=== PATIENT | female | born 1975 | race Caucasian/White ===

== ENCOUNTER 2016-04-11 09:13 | Inpatient (IN) | payer OTHER ==
[2016-04-04 09:12] VITALS: BMI 29.0
--- NOTE | 2016-04-04 09:40 | PAT Medication Instructions ---
Service Date Apr 04, 2016. Current Home Medication List Acetaminophen (Tylenol), 1,000 MG PO PRN Ferrous Sulfate (Ferrous Sulfate), 325 MG PO QAM Hydrocodone/Acetaminophen ([place] 10/325 Tab), 1 TAB PO Q4-6H PRN for N Multivitamin (Multivitamin), 1 TAB PO QAM Pantoprazole (Protonix), 40 MG PO QAM Polyethylene Glycol 3350 (Miralax), 17 GM PO DAILY PRN for PRN Sertraline (Zoloft), 100 MG PO QAM Sucralfate (Carafate), 10 ML PO QID Medication Instructions For Your Scheduled Surgery - Hold the following medications the morning of surgery: Polyethylene Glycol 3350 (Miralax), 17 GM PO DAILY PRN for PRN Multivitamin (Multivitamin), 1 TAB PO QAM Ferrous Sulfate (Ferrous Sulfate), 325 MG PO QAM Sucralfate (Carafate), 10 ML PO QID - Take the following medications the morning of surgery with a sip of water: Sertraline (Zoloft), 100 MG PO QAM Pantoprazole (Protonix), 40 MG PO QAM Acetaminophen (Tylenol), 1,000 MG PO PRN Hydrocodone/Acetaminophen ([place] 10/325 Tab), 1 TAB PO Q4-6H PRN for N (okay to take up to 4 hours prior to surgery if needed) - Take the following medications as scheduled the night before surgery: Sucralfate (Carafate), 10 ML PO QID Polyethylene Glycol 3350 (Miralax), 17 GM PO DAILY PRN for PRN Acetaminophen (Tylenol), 1,000 MG PO PRN Hydrocodone/Acetaminophen ([place] 10/325 Tab), 1 TAB PO Q4-6H PRN for N If you have any questions please call us at [phone] (Nancy Lang PA-C) or [phone] or [phone]
--- NOTE | 2016-04-04 10:21 | DIAGNOSTIC IMAGING REPORT ---
CHEST PREADMISSION(PA/LAT) CLINICAL HISTORY: PAT preoperative evaluation COMPARISON STUDY: No previous studies for comparison. FINDINGS: The bones soft tissues and hemidiaphragms are normal. The cardiomediastinal silhouette is normal. The lungs are clear. The pulmonary vasculature is normal. IMPRESSION: Negative chest. Electronically signed by: Jasen Simpson M.D. 04/04/2016 10:20 AM Dictated Date/Time: 04/04/2016 10:19 AM
[2016-04-04 10:25] LABS: BASO % 0.2 %; BASO ABS # 0.02 K/uL (0-0.2); COMPLETE YES; EOS % 1.4 %; IG% 0.3 %; LYMPH % 27.4 %; LYMPH ABS # 2.36 K/uL (1.2-3.4); MEAN CELL VOLUME 85.1 fL (80-100); MEAN CORPUSCULAR HEMOGLOBIN 28.2 pg (25-34); MEAN CORPUSCULAR HGB CONC 33.2 g/dl (32-36); NEUT % 64.7 %; PLATELET COUNT 388 K/uL (130-400); RED BLOOD COUNT 4.82 M/uL (4.2-5.4)
[2016-04-04 10:32] LABS: URINE APPEARANCE CLEAR (CLEAR); URINE BILIRUBIN NEG (NEG); URINE COLOR YELLOW; URINE NITRITE NEG (NEG); URINE PH 6.5 (4.5-7.5); UROBILINOGEN NEG (NEG); ZZUR CULT IF INDIC CLEAN CATCH NO
[2016-04-04 10:44] LABS: BUN/CREATININE RATIO 7.3 (10-20); CALCIUM 9.1 mg/dl (8.5-10.1); CREATININE 0.56 mg/dl (0.60-1.20); POTASSIUM 3.7 mmol/L (3.5-5.1)
[2016-04-04 10:45] LABS: MANUAL MICROSCOPIC REQUIRED? NO; REVIEW REQ? NO
[2016-04-04 11:00] LABS: INR 1.1 (0.9-1.1); PARTIAL THROMBOPLASTIN RATIO 1.1; PROTHROMBIN TIME (PATIENT) 11.5 SECONDS (9.0-12.0)
[2016-04-04 11:24] LABS: ESTIMATED AVERAGE GLUCOSE 105 mg/dl; HA1C FLAG Normal (Normal)
--- NOTE | 2016-04-04 11:29 | History and Physical ---
History & Physical Date Apr 04, 2016. Chief Complaint Left Knee Pain History of Present Illness Ms Demarco is a 40 year old female who complains of left knee pain. She presents with pain on the left side. Patient reports that she injured her left knee in September,. States that her left knee pain has been getting progressively worse over the last 5-6 weeks. The symptoms occur intermittently. The problem is fluctuating. Currently the patient states that the symptoms are moderate- severe. The pain is described as aching, discomforting and throbbing. The symptoms occur intermittently. The symptoms are aggravated by ascending stairs, daily activities, descending stairs, first steps while awake, kneeling, repetitive activities, sleeping on the affected side, squatting, walking and standing. Pt. unable to stand for long periods of time. Lisa states that the symptoms are relieved by no specific activity. In addition to left knee pain the patient is also experiencing decreased mobility, difficulty bending, difficulty going to sleep, limping, nighttime awakening, pain and tenderness. Pertinent negatives include chills and fever. Prior pain medications include hydrocodone. Pt. takes chronic Hydorcodone 10/[address] She is unable to take NSAID's due to medical reasons. Patient has had arthroscopic surgery. Pt. had ACL reconstruction many years ago. There were previous episodes. Pt. had known back problems and had gastric bypass surgery. Past Medical/Surgical History Past Medical History 1. Low Back Pain 2. GERD Past Surgical History 1. Tonsils 2. Right foot Reconstruction 3. Tubal Ligation 4. Hysterectomy 5. Gastric Bypass 5. Cholecystectomy Additional History Hepatic Disease: No Endocrine Disorder: No Kidney Disease: No Hypertension: No Heart Disease: No Bleeding Tendencies: No Allergies Coded Allergies: Ciprofloxacin (Verified Allergy, Unknown, FACIAL SWELLING, 04/04/16) NSAIDs (Verified Allergy, Unknown, NOT TO TAKE DUE TO BLEEDING,HX ULCERS, 04/04/16) Home Medications Scheduled Acetaminophen (Tylenol), 1,000 MG PO PRN Ferrous Sulfate (Ferrous Sulfate), 325 MG PO QAM Multivitamin (Multivitamin), 1 TAB PO QAM Pantoprazole (Protonix), 40 MG PO QAM Sertraline (Zoloft), 100 MG PO QAM Sucralfate (Carafate), 10 ML PO QID Scheduled PRN Hydrocodone/Acetaminophen ([place] 10/325 Tab), 1 TAB PO Q4-6H PRN for N Polyethylene Glycol 3350 (Miralax), 17 GM PO DAILY PRN for PRN Physical Examination Skin: warm/dry, no rash Eyes: normal inspection, EOMI, sclerae normal ENT: normal ENT inspection, pharynx normal Head: normocephalic, atraumatic Neck: supple, no adenopathy, trachea midline Respiratory/Chest: lungs clear, normal breath sounds, no respiratory distress Cardiovascular: regular rate, rhythm, no edema, no murmur Abdomen / GI: normal bowel sounds, non tender Addiitonal Comments: Left Knee Exam Knee ROM L * Active ROM - Flexion: 120 degrees, Extension: 3 degrees, Factors: normal, Description: active pain free range of motion. Passive ROM - Flexion: 135 degrees, Extension: 0 degrees, Factors: normal, Description: passive pain free range of motion. Knee ROM R * Active ROM - Flexion: 135 degrees, Extension: 0 degrees, Factors: normal, Description: active pain free range of motion. Passive ROM - Flexion: 135 degrees, Extension: 0 degrees, Factors: normal, Description: passive pain free range of motion. Strength LE Normal Strength Description - Normal lower extremity: Bilateral. Knee * Gait: Antalgic. Alignment - Left: neutral. Ecchymosis - Left: negative. Effusion - Left: mild. Swelling - Left: mild. Flexibility - Left: normal. Maximum tenderness - Left: Medial Joint Line. Patella exam - Crepitation - Left : negative. Patella position - Left: neutral. Q-angle - Right: Abnormal, 5 degrees. Tilt - Left: equal. [facility]'s - medial - Left: Positive. Knee Normal Inspection - Atrophy - Left: Absent. Skin - Left: Normal. Patella exam - Apprehension - Right: Negative, Left: Negative. Q-angle - Left: Normal. Duane's - Left: Negative. Maria Elena's - lateral - Left: Negative. Posterior drawer - Left: Negative. Anterior drawer - Left: Negative. Valgus stress - Left : Negative. Varus stress - Left: Negative. Extensor lag - Left: Normal. Neurovascular LE Normal Neurovascular examination including reflexes, sensation , and pulses is within normal limits. LEFT KNEE XRAY Study Result/Report X-RAY Knee 4 Or More Views LT knee Severe end-stage tricompartmental degenerative joint disease left knee with retained ACL hardware [id number] changes medial lateral patellofemoral compartments Diagnosis LEFT KNEE OSTEOARTHRITIS Further care discussed with patient and at this point in time has failed conservative measures and would like to proceed with a left total knee replacement. Plan on discharge will be home with outpatient physical therapy. DVT prophalaxis with TEDs, SCDs and will also place on aspirin 81 mg p.o. b.i.d. for a month postop. Patient will have follow up appointment in our office two weeks post op for staple/suture removal and re-evaluation. Patient otherwise has no other questions or concerns. Plan of Treatment plan for a left total knee replacement and removal previous ACL screws
[~2016-04-11] VITALS: Ht 165.1 cm; Wt 79.1 kg
[2016-04-11] VITALS (10 sets, daily range): BP systolic 101–118; BP diastolic 66–75; PULSE 68–88; TEMP 36.5–36.8; O2SAT 95–99; Ht 165.1 cm; Wt 79.1 kg
[2016-04-11] MEDS: TRANEXAMIC ACID INJ 1,000 MG in SODIUM CHLORIDE 0.9% 100ML 100 ML IV SCH ×2 (06:30→11:10)
--- NOTE | 2016-04-11 07:09 | History & Physical Bridge Note ---
H&P Re-Evaluation Bridge Note: I have examined the patient, reviewed the History & Physical and in the interval since the performance of the History & Physical I have noted the following changes of clinical significance: No changes noted
[~2016-04-11 09:13] MED LIST: ACET-1256 PO; BUPIVACAINE 0.5 % 5 MG/1 ML PF 10ML VIAL ONE; CEFAZOLIN 1000MG/55 ML D5W IV SCH; CRFL PO; FERR325T5 PO; HYDR-4383 PO; LACTATED RINGER'S 1000ML 1,000 ML IV SCH; LACTATED RINGER'S 1000ML 500 ML IV ONE; MULT-506 PO; PANT40TA PO; POLY335019 PO; ROPIVACAINE 5MG/ML 30 ML 150 MG, BUPIVACAINE/EPINEPHR 0.5% MPF 30 ML, KETOROLAC TROMETH... INFIL SCH; SERT-234 PO
[2016-04-11] MEDS ORDERED: NURSING VERBAL MED ORDER STA (09:48)
[2016-04-11] MEDS ORDERED: FENTANYL CITRATE INJ 50 MCG/1 ML 2 ML VIAL ONE (10:14)
[2016-04-11] MEDS ORDERED: MIDAZOLAM HCL 1 MG/ML 2ML VIAL ONE ×2 (10:14→12:11)
[2016-04-11] MEDS ORDERED: ONDANSETRON INJ 2 MG/ML 2 ML VIAL IV PRN ×2 (10:45→14:15)
[2016-04-11] MEDS ORDERED: ATROPINE SULFATE 0.1 MG/ML 5ML SYR IV PRN (10:45)
[2016-04-11] MEDS ORDERED: EpHEDrine SULFATE INJ 50 MG/ML AMP IV PRN (10:45)
[2016-04-11] MEDS ORDERED: FENTANYL CITRATE INJ 50 MCG/1 ML 2 ML VIAL IV PRN (10:45)
[2016-04-11] MEDS ORDERED: POVIDONE-IODINE OP SOLN 30 ML BTL ONE (11:20)
[2016-04-11] MEDS ORDERED: ORTHO JOINT ANESTHETIC ONE (11:20)
[2016-04-11] MEDS ORDERED: BACITRACIN 50000 UNIT VIAL ONE (11:20)
[2016-04-11] MEDS ORDERED: PROPOFOL IV EMULSION 10 MG/ML 20 ML VIAL IV ONE (12:22)
[2016-04-11] MEDS ORDERED: LIDOCAINE HCL 2% 2 ML VIAL (20MG/ML) ONE (12:22)
--- NOTE | 2016-04-11 13:39 | [facility] Post Operative Brief Note ---
Immediate Operative Summary Operative Date Apr 11, 2016. Pre-Operative Diagnosis Left Knee Osteoarthritis with retained acl screws Post-Operative Diagnosis Same as preop Procedure(s) Performed Left Total Knee Arthroplasty, Removal of Anterior Cruciate Ligament Screws Surgeon Dr. Hammer Tank Truck Loader Surgeon(s) Jasen Pavon Estimated Blood Loss 5 ml Findings severe djd lt knee Specimens A. Left Knee Bone and Tissue B. Removed Hardware Complication(s) None Disposition Recovery Room / PACU
--- NOTE | 2016-04-11 14:05 | OPERATIVE REPORT ---
DATE OF OPERATION: 04/11/2016 PREOPERATIVE DIAGNOSIS: Severe end-stage tricompartmental degenerative joint disease, left knee with retained anterior cruciate ligament screws. POSTOPERATIVE DIAGNOSIS: Same. PROCEDURE: Removal of ACL screws and left total knee arthroplasty utilizing size 4 femur, 3 tibia, 9 poly, 32 oval patella Journey II nonblock total knee arthroplasty. SURGEON: Dr. Hammer. ACCOUNTS RECEIVABLE COLLECTOR: Jasen Pavon PA-C, who was necessary for prepping, draping, retraction, and wound closure of deep fascia, subQ and skin and was necessary for the case. HISTORY OF PRESENT ILLNESS: The patient presents as a very pleasant 40-year-old white female with the above complaints. She has had a longstanding progressive deterioration of her knee since her ACL reconstruction years prior. She presents with bone to bone changes medial compartment and lateral compartment and patellofemoral compartment. She has been nonresponsive to conservative therapy including physical therapy, anti-inflammatories, activity modification, bracing, viscosupplementations and presents for left total knee arthroplasty. OPERATION AND FINDINGS: PROCEDURE: The patient was properly prepped and draped in supine position for total knee arthroplasty after identifying the appropriate surgical site. An anterior midline incision was made through the subcutaneous tissues down to the region of the extensor mechanism. A medial parapatellar incision was subsequently made. Meticulous hemostasis was obtained and performed at all times. The patella having been subluxed lateralward, medial and lateral meniscal remnants were excised. The patellar cut was then initially made and was sized to the appropriate size. After subluxing the tibia forward the appropriate meniscal fragments having been removed the distal femur was then cut first utilizing a Dominguez \T\ Nephew block. The distal femoral cuts and chamfer cuts were all made under direct visualization and the proximal tibial osteotomy cut was also made utilizing Dominguez \T\ Nephew blocks and checked with an extramedullary guide. The appropriate trial components on the femur and tibia were placed. Appropriate trial spacers were used to check flexion and extension gaps. With flexion and extension gaps being equal, the components were then subsequently after thorough irrigation and debridement lavage components were then subsequently cemented in the following order: femur, tibia and patella. ACL femoral and tibial screws were both removed under direct visualization without difficulty. Exparel was used for intraoperative anesthesia, the medial parapatellar incision was closed utilizing #1 Vicryl, subQ was closed with 2-0 Vicryl, skin was closed with skin clips. A sterile compression dressing was placed. The patient was taken to recovery room in stable condition. Due to the complex nature of the procedure, the entire surgery was performed with the operational assistance of Jasen Pavon PA-C. The sales service assistant, under direct supervision, was involved in the actual performance of all aspects of the surgical procedure including hemostasis, tissue retraction and incision, instrument management, patient positioning, and wound closure. I attest to the content of the Intraoperative Record and any orders documented therein. Any exceptio ns are noted below.
[2016-04-11] MEDS ORDERED: ALUMINUM/MAGNESIUM/SIMETH (MAALOX MAX) 30 ML UDC PO PRN (14:15)
[2016-04-11] MEDS ORDERED: ZOLPIDEM TARTRATE 5 MG TAB PO PRN (14:15)
[2016-04-11] MEDS ORDERED: MAGNESIUM HYDROXIDE SUSP 30 ML UDC PO PRN (14:15)
[2016-04-11] MEDS ORDERED: MoRPHine SULFATE 2 MG/ML CARP IV PRN ×2 (14:15→15:30)
[2016-04-11] MEDS ORDERED: BISACODYL 10 MG SUPP PR PRN (14:15)
[2016-04-11] MEDS ORDERED: SOD PHOSPHATE/SOD BIPHOSPHATE ENEMA 132 ML BTL PR PRN (14:15)
--- NOTE | 2016-04-11 14:54 | Anesthesiology Progress Note ---
Anesthesia Post Op Note Date & Time Apr 11, 2016 at 14:54 Vital Signs Pain Intensity: 0 Vital Signs Past 12 Hours Date Time Temp Pulse Resp B/P Pulse Ox O2 Delivery O2 Flow Rate FiO2 04/11/16 14:45 107/57 04/11/16 14:42 79 13 04/11/16 14:42 78 13 99 04/11/16 14:40 105/60 04/11/16 14:37 76 19 04/11/16 14:37 75 19 99 04/11/16 14:35 106/67 04/11/16 14:32 71 13 04/11/16 14:32 73 13 100 04/11/16 14:30 105/59 04/11/16 14:27 79 12 04/11/16 14:27 79 12 100 04/11/16 14:25 99/54 04/11/16 14:22 83 12 04/11/16 14:22 82 12 98 04/11/16 14:21 82 13 99 04/11/16 14:21 80 13 04/11/16 14:20 105/59 04/11/16 14:16 79 17 04/11/16 14:16 79 17 98 04/11/16 14:15 97/57 04/11/16 14:11 84 13 04/11/16 14:11 37.1 88 19 103/51 97 Nasal Cannula 2 04/11/16 14:11 85 13 103/51 97 04/11/16 09:41 36.7 88 20 118/73 97 Room Air Notes Mental Status: alert / awake / arousable, participated in evaluation Pt Amnestic to Procedure: Yes Nausea / Vomiting: adequately controlled Pain: adequately controlled Airway Patency, RR, SpO2: stable & adequate BP & HR: stable & adequate Hydration State: stable & adequate Anesthetic Complications: no major complications apparent
--- NOTE | 2016-04-11 15:05 | DIAGNOSTIC IMAGING REPORT ---
TWO VIEWS LEFT KNEE CLINICAL HISTORY: Postoperative examination. FINDINGS: AP and crosstable lateral portable views of the left knee are obtained. A left knee arthroplasty is in near anatomic alignment. There has been undersurface remodeling of the patella. No acute fracture is seen. There are expected postoperative changes around the knee including a surgical drain, soft tissue edema, and subcutaneous gas. IMPRESSION: Expected postoperative changes status post left knee arthroplasty. No acute fracture is seen. Electronically signed by: Herminio Alexander M.D. 04/11/2016 3:04 PM Dictated Date/Time: 04/11/2016 3:03 PM
[2016-04-11] MEDS ORDERED: POLYETHYLENE (MIRALAX) 17 GM PACK PO PRN (15:30)
[2016-04-11] MEDS ORDERED: MoRPHine SULFATE 4 MG/ML 1 ML CARP\\VIAL IV PRN (15:45)
[2016-04-11] MEDS ORDERED: MoRPHine SULFATE 10 MG/ML CARP/VIAL IV PRN (15:45)
[2016-04-11] MEDS: ACETAMINOPHEN 500 MG TAB PO SCH ×2 (16:15→20:32)
[2016-04-11] MEDS: D5W AND 1/2NSS + 20MEQ KCL 1,000 ML IV SCH (16:15)
[2016-04-11] MEDS ORDERED: SUCRALFATE 1 GM/10 ML UDC PO SCH (17:00)
[2016-04-11] MEDS: OXYCODONE HCL IR 5 MG TAB (IMMEDIATE RELEASE) PO PRN (17:05)
[2016-04-11] MEDS: SUCRALFATE 1 GM/10 ML UDC PO SCH ×2 (17:06→20:31)
[2016-04-11] MEDS ORDERED: NURSING VERBAL MED ORDER ONE ×4 (17:45→20:45)
[2016-04-11] MEDS: CEFAZOLIN IV 1,000 MG in DEXTROSE 5% 50ML 50 ML IV SCH (18:03)
[2016-04-11] MEDS: FERROUS GLUCONATE 324 MG TAB PO SCH (18:04)
[2016-04-11] MEDS ORDERED: MoRPHine SULFATE 2 MG/ML CARP IV ONE (20:00)
[2016-04-11] MEDS ORDERED: SODIUM CHLORIDE 0.9% 1000ML 1,000 ML IV SCH (20:00)
[2016-04-11] MEDS ORDERED: NALOXONE HCL 0.4 MG/1 ML VIAL/CARP IV PRN (20:00)
[2016-04-11] MEDS: MORPHINE SULFATE 1 MG/ML 50 ML PCA SYR IV PRN (20:16)
[2016-04-11] MEDS: ASPIRIN 81 MG ECTAB PO SCH (20:31)
[2016-04-11] MEDS: DOCUSATE SODIUM 100 MG CAP PO SCH (20:31)
[2016-04-11] MEDS: SENNA 8.6 MG TAB PO SCH (20:31)
[2016-04-11] MEDS ORDERED: OXYCODONE HCL 10 MG TABCR (OXYCONTIN) PO SCH (21:00)
[2016-04-11] MEDS: LORAZEPAM 0.5 MG TAB PO PRN (23:27)
[2016-04-12 00:23] VITALS: BP 108/68; PULSE 76; TEMP 36.4; O2SAT 96
[2016-04-12] MEDS: MORPHINE SULFATE 1 MG/ML 50 ML PCA SYR IV PRN ×3 (00:53→06:54)
[2016-04-12] MEDS: D5W AND 1/2NSS + 20MEQ KCL 1,000 ML IV SCH ×2 (00:58→12:41)
[2016-04-12] MEDS: CEFAZOLIN IV 1,000 MG in DEXTROSE 5% 50ML 50 ML IV SCH (00:58)
[2016-04-12 02:59] VITALS: BP 97/65; PULSE 69; TEMP 36.4; O2SAT 97
[2016-04-12] MEDS: ACETAMINOPHEN 500 MG TAB PO SCH ×3 (05:09→21:43)
[2016-04-12 07:38] VITALS: BP 107/73; PULSE 78; TEMP 36.6; O2SAT 100
--- NOTE | 2016-04-12 07:42 | Orthopedic Progress Note ---
Orthopedic Progress Note Date of Service Apr 12, 2016. Subjective Post OP Day: 1 Reports: feeling well, using SALES CENTER MANAGER, Denies: SOB, chest pain, light headedness, nausea / vomiting Additional Notes: having increased pain last evening into today. denies CP/SOB Objective calves soft nontender, N/V intact, capillary refill less than 2 sec., dressing C /D/I, A&O x3, toes mobile Date Time Temp Pulse Resp B/P Pulse Ox O2 Delivery O2 Flow Rate FiO2 04/12/16 07:38 36.6 78 16 107/73 100 Room Air 04/12/16 02:59 36.4 69 16 97/65 97 Room Air 04/12/16 00:23 36.4 76 18 108/68 96 Room Air 04/11/16 23:28 36.6 72 16 109/72 96 Room Air 04/11/16 22:15 36.6 69 18 103/67 97 Nasal Cannula 2.0 04/11/16 21:11 36.5 68 18 110/69 96 Room Air 04/11/16 20:24 74 18 109/75 98 Nasal Cannula 2.0 04/11/16 19:45 Nasal Cannula 2.0 04/11/16 18:56 36.8 77 16 118/74 97 Room Air 04/11/16 17:26 36.6 69 16 109/71 95 Room Air 04/11/16 16:12 36.6 81 16 108/73 99 Room Air 04/11/16 15:53 87 16 106/71 99 Nasal Cannula 2.0 04/11/16 15:15 98 Nasal Cannula 2.0 04/11/16 15:15 98 Nasal Cannula 2.0 04/11/16 15:15 36.7 77 18 101/66 98 Nasal Cannula 2.0 04/11/16 14:56 74 12 99 04/11/16 14:56 74 12 04/11/16 14:55 105/59 04/11/16 14:51 75 18 04/11/16 14:51 77 18 97 04/11/16 14:50 107/56 04/11/16 14:46 76 15 04/11/16 14:46 81 15 99 04/11/16 14:45 37.3 107/57 04/11/16 14:42 79 13 04/11/16 14:42 78 13 99 04/11/16 14:40 105/60 04/11/16 14:37 76 19 04/11/16 14:37 75 19 99 04/11/16 14:35 106/67 04/11/16 14:32 71 13 04/11/16 14:32 73 13 100 04/11/16 14:30 105/59 04/11/16 14:27 79 12 04/11/16 14:27 79 12 100 04/11/16 14:25 99/54 04/11/16 14:22 83 12 04/11/16 14:22 82 12 98 04/11/16 14:21 82 13 99 04/11/16 14:21 80 13 04/11/16 14:20 105/59 04/11/16 14:16 79 17 04/11/16 14:16 79 17 98 04/11/16 14:15 97/57 04/11/16 14:11 84 13 04/11/16 14:11 37.1 88 19 103/51 97 Nasal Cannula 2 04/11/16 14:11 85 13 103/51 97 04/11/16 09:41 36.7 88 20 118/73 97 Room Air Laboratory Results 24 Hours: Test 04/12/16 04:44 Assessment & Plan Assessment: POD #1 s/p Left TKA -having increased pain, will increase oxycontin to 20mg bid, add dilaudid IV prn q 2 hours -PT/OT -dvt proph with ifeoma/scd/asa, has h/o gastric ulcers but is able to tolerate small doses of NSAIDs if taking protonix, will cont to observe. discussed possibly using lovenox as well Discharge Planning DVT Prophylaxis: TEDs, SCDs, ASA Therapy: Physical Therapy
[2016-04-12] MEDS: OXYCODONE HCL IR 5 MG TAB (IMMEDIATE RELEASE) PO PRN ×4 (08:13→22:32)
[2016-04-12] MEDS: KETOROLAC TROMETHAMINE 30 MG/ML VIAL IV PRN ×3 (08:13→20:24)
[2016-04-12] MEDS: SUCRALFATE 1 GM/10 ML UDC PO SCH ×4 (08:14→20:41)
[2016-04-12] MEDS: OXYCODONE HCL 20 MG TABCR (OXYCONTIN) PO SCH ×2 (08:35→20:41)
[2016-04-12] MEDS: MULTIVITAMIN TAB PO SCH (08:35)
[2016-04-12] MEDS: PANTOprazole SOD 40 MG TAB PO SCH (08:36)
[2016-04-12] MEDS: SERTRALINE HCL 100 MG TAB PO SCH (08:36)
[2016-04-12] MEDS: DOCUSATE SODIUM 100 MG CAP PO SCH ×2 (08:36→20:41)
[2016-04-12] MEDS: ASPIRIN 81 MG ECTAB PO SCH ×2 (08:36→20:41)
[2016-04-12] MEDS: FERROUS GLUCONATE 324 MG TAB PO SCH ×3 (08:36→18:20)
[2016-04-12] MEDS: FERROUS SULFATE 325 MG TAB PO SCH (08:37)
[2016-04-12] MEDS: HYDROmorphone INJ 1 MG/ML SYR IV PRN ×4 (10:12→21:47)
[2016-04-12 10:20] LABS: HEMATOCRIT 32.9 % (37-47); MEAN CORPUSCULAR HEMOGLOBIN 28.2 pg (25-34); MEAN CORPUSCULAR HGB CONC 33.1 g/dl (32-36); MEAN PLATELET VOLUME 9.5 fL (7.4-10.4); PLATELET COUNT 365 K/uL (130-400); RED BLOOD COUNT 3.87 M/uL (4.2-5.4); WHITE BLOOD COUNT 11.27 K/uL (4.8-10.8)
[2016-04-12 10:30] LABS: PROTHROMBIN TIME (PATIENT) 10.3 SECONDS (9.0-12.0)
[2016-04-12 11:01] LABS: BUN/CREATININE RATIO 10.8 (10-20); CALCIUM 8.3 mg/dl (8.5-10.1); CREATININE 0.52 mg/dl (0.60-1.20); POTASSIUM 3.6 mmol/L (3.5-5.1)
[2016-04-12 11:44] VITALS: BP 110/73; PULSE 95; TEMP 36.4; O2SAT 100
[2016-04-12] MEDS: LORAZEPAM 0.5 MG TAB PO PRN (14:26)
--- NOTE | 2016-04-12 14:50 | Discharge Instructions ---
Discharge Instructions Admission Reason for Admission: Left Knee Osteoarthritis Discharge Discharge Diagnosis / Problem: left total knee replacement Discharge Goals Goal(s): Decrease discomfort, Improve function, Increase independence Activity Recommendations Activity Limitations: as noted below Weightbearing Status: Left weightbearing (as tolerated) . Instructions / Follow-Up Instructions / Follow-Up ACTIVITY RECOMMENDATIONS: SELF CARE INSTRUCTIONS AFTER TOTAL KNEE REPLACEMENT A. You may need to continue a physical therapy program after discharge from the hospital. There are several options available to you. Your doctor will assist you in selecting the best one for you. 1. An out-patient facility 2 to 3 times a week for therapy or home therapy. 2. Continue working on all exercises taught to you in the hospital. Your goals should be to increase bending of your knee to 90 degrees and beyond and to fully straighten your knee. B. You may progress at your own pace from walking with a walker or crutches to a cane; then to no assistive devices. C. Make walking a part of your daily routine. Be up as much as comfortable with rest periods throughout the day. Rest with leg elevation is very important. Use the ice wrap frequently for the first 3-4 weeks. D. There are no restrictions on activities. You may ride in a car, shop, participate in school library media specialist and all social activities. E. Wear the long elastic stockings (JUANA hose) 20 hours a day for 2 weeks after surgery. They can be removed several times a day for laundering and for a bath. F. You may shower, no tub baths until cleared by your doctor. SPECIAL CARE INSTRUCTIONS: VERY IMPORTANT TO READ AND REVIEW A. There are a few signs you need to watch for after you are home. Call [facility] if you notice any of the followin. Increased severe knee pain. Some pain is expected especially when you exercise. 2. Increased swelling in your leg or knee; pain or swelling of the calf muscle in either lower leg. 3. Any fluid drainage from the incision. 4. Shortness of breath or chest pain. B. Please call [facility] at if you have any concerns or questions about your operation or recovery. The doctor or his nurse will return your call promptly. C. You must take antibiotics before dental work, bladder, bowel or other surgery. Your doctor will provide you with a permanent care to carry describing this precaution. IMPORTANT: * REMEMBER TO TAKE ASPIRIN, 81 MG, TWICE DAILY FOR 4 WEEKS UNLESS OTHERWISE DIRECTED. THIS IS YOUR BLOOD THINNER. * HIGH RISK PATIENTS MAY BE PRESCRIBED A STRONGER BLOOD THINNER. THIS WILL BE PROVIDED AT DISCHARGE. * CALL IF INCREASED PAIN, REDNESS, DRAINAGE OR FEVER GREATER THAT 101. * WEAR JUANA HOSE 20 HOURS PER DAY FOR 2 WEEKS. * DERMABOND Prineo- This is a mesh tape dressing that is covered with glue. It should remain in place until the incision is properly healed, usually 10-14 days. This dressing is designed to naturally slough off. You may trim the excess mesh tape as it peels off. Incision may be briefly wet in a shower. Dry immediately by blotting with a clean, dry towel. Do not bath or swim until instructed by your doctor. Do not scratch, rub, or pick at the dressing. Do not apply any topical ointments or lotions until dressing is completely removed and/or instructed by your doctor. There may be a small piece of suture material at one end of your incision. Do not pull or trim this. If it is bothersome or catching on clothing, you may cover it with a band-aid. FOLLOW UP VISIT: If appointment is not already scheduled: Please call [facility] to make a follow-up appointment for 2 weeks after your surgery at . Current Hospital Diet Patient's current hospital diet: Regular Diet Discharge Diet Recommended Diet: Regular Diet Procedures Procedures Performed: Left Total Knee Arthroplasty, Removal of Anterior Cruciate Ligament Screws Pending Studies Studies pending at discharge: no Laboratory Results Hemoglobin A1c Test 04/04/16 09:56 Range/Units Estimated Average Glucose 105 mg/dl Hemoglobin A1c 5.3 4.5-5.6 % Medical Emergencies . Who to Call and When: Medical Emergencies: If at any time you feel your situation is an emergency, please call 911 immediately. . Non-Emergent Contact Non-Emergency issues call your: Primary Care Provider, Surgeon . "Provider Documentation" section prepared by Jasen Pavon. VTE Core Measure Inpt VTE Proph given/why not?: Other Anticoagulation (ASA 81mg po bid x 1 month ), T.E.DLele Stockings, SCD's [place] Drug Monitoring Program Search Results: patient reviewed within database, no issues identified
[2016-04-12 15:25] VITALS: BP 97/64; PULSE 103; TEMP 37.3; O2SAT 98
[2016-04-12] MEDS: SENNA 8.6 MG TAB PO SCH (20:41)
[2016-04-12 23:39] VITALS: BP 97/62; PULSE 78; TEMP 36.8; O2SAT 95
[2016-04-13] MEDS: LORAZEPAM 0.5 MG TAB PO PRN ×2 (00:29→10:19)
[2016-04-13] MEDS: HYDROmorphone INJ 1 MG/ML SYR IV PRN ×2 (00:29→05:42)
[2016-04-13] MEDS: KETOROLAC TROMETHAMINE 30 MG/ML VIAL IV PRN (02:39)
[2016-04-13] MEDS: OXYCODONE HCL IR 5 MG TAB (IMMEDIATE RELEASE) PO PRN ×3 (02:40→11:53)
[2016-04-13] MEDS: ACETAMINOPHEN 500 MG TAB PO SCH (05:46)
--- NOTE | 2016-04-13 06:59 | Orthopedic Progress Note ---
Orthopedic Progress Note Date of Service Apr 13, 2016. Subjective Post OP Day: 2 Reports: feeling well, pain controlled w PO medications, Denies: SOB, calf pain , chest pain, complaints, light headedness, nausea / vomiting Objective calves soft nontender, N/V intact, capillary refill less than 2 sec., incision C /D/I, A&O x3, toes mobile Date Time Temp Pulse Resp B/P Pulse Ox O2 Delivery O2 Flow Rate FiO2 04/12/16 23:39 36.8 78 16 97/62 95 Room Air 04/12/16 19:15 Room Air 04/12/16 15:41 Room Air 04/12/16 15:25 37.3 103 16 97/64 98 Room Air 04/12/16 11:44 36.4 95 16 110/73 100 Room Air 04/12/16 10:43 Room Air 04/12/16 08:15 Room Air 04/12/16 07:38 36.6 78 16 107/73 100 Room Air Laboratory Results 24 Hours: Test 04/12/16 10:11 Hematocrit 32.9 % Hemoglobin 10.9 g/dL Prothromb Time International Ratio 1.0 Prothrombin Time 10.3 SECONDS Assessment & Plan Assessment: POD #2 s/p Left TKA -PT/OT -pain seems better controlled today -dvt proph with ifeoma/scd/asa, has h/o gastric ulcers but is able to tolerate small doses of NSAIDs if taking protonix, will cont to observe. discussed possibly using lovenox as well Discharge Planning Discharge Planning: home with home health DVT Prophylaxis: TEDs, SCDs, ASA Therapy: Physical Therapy
[2016-04-13] MEDS ORDERED: ONDA8TAB6 PO (07:04)
[2016-04-13] MEDS ORDERED: ACET-1138 PO (07:04)
[2016-04-13] MEDS ORDERED: OXYSR/20 PO (07:04)
[2016-04-13] MEDS ORDERED: RXC5 PO (07:04)
[2016-04-13] MEDS ORDERED: CLC100 PO (07:04)
[2016-04-13] MEDS ORDERED: ASPEC81 PO (07:04)
[2016-04-13 07:05] VITALS: BP 120/82; PULSE 81; TEMP 36.5; O2SAT 100
--- NOTE | 2016-04-13 07:08 | Discharge Summary ---
Orthopedic Discharge Summary Admission Date/Reason Apr 11, 2016 at 09:45 Left Knee Osteoarthritis. Discharge Date/Disposition Apr 13, 2016 Home with services Diagnosis Principal Diagnosis: left knee arthritis Procedure(s) Performed : Removal of ACL screws and left total knee arthroplasty utilizing size 4 femur , 3 tibia, 9 poly, 32 oval patella Journey II nonblock total knee arthroplasty. Consultations NONE Medication Reconciliation New Medications: Ondansetron Hcl (Zofran) 8 Mg Tab 8 MG PO Q8 PRN for Nausea, #20 TAB Acetaminophen (Tylenol Extra Strength) 500 Mg Tab 1000 MG PO Q8, #126 TAB Aspirin (Aspirin EC Low Dose) 81 Mg Ectab 81 MG PO BID for 30 Days Docusate Sodium (Docusate Sodium) 100 Mg Cap 100 MG PO BID for 10 Days, #20 CAP Oxycodone HCl (Oxycontin) 20 Mg Tabcr 10 MG PO Q12, #20 Oxycodone HCl (Oxycodone HCl) 5 Mg Tab 5-10 MG PO Q4H PRN for Pain, #60 TAB Continued Medications: Ferrous Sulfate (Ferrous Sulfate) 325 Mg Tab 325 MG PO QAM Multivitamin (Multivitamin) Tab 1 TAB PO QAM, TAB Pantoprazole (Protonix) 40 Mg Tab 40 MG PO QAM, #30 TAB Polyethylene Glycol 3350 (Miralax) 1 Pow Pow 17 GM PO DAILY PRN for PRN, #255 GM Sertraline (Zoloft) 100 Mg Tab 100 MG PO QAM, TAB Sucralfate (Carafate) 1 Gm/10 Ml Alanna 1 GM PO QID for 30 Days, #1200 ML Discontinued Medications: Acetaminophen (Tylenol) 500 Mg Tab 1000 MG PO PRN, TAB Hydrocodone/Acetaminophen ([place] 10/325 Tab) 1 Tab Tab 1 TAB PO Q4-6H PRN for N, TAB Admission Physical Exam As per Admitting History & Physical. Hospital Course Patient was a same day admission after undergoing a successful left TKA. she tolerated the procedure well. Post-operatively, her activity was progressed and well tolerated. Please refer to daily progress notes and PT notes for complete details. After exam on 04/13/16, patient felt to be stable for discharge home with home health PT. Patient will f/u in the office in 2 weeks for further evaluation including x-rays and incision check, sooner if having any issues or concerns. Below are pertinent labs/studies during their hospital stay: Last Vital Signs Documentation Date Time Temp Pulse Resp B/P Pulse Ox O2 Delivery O2 Flow Rate FiO2 04/13/16 07:05 36.5 81 16 120/82 100 Room Air 04/11/16 22:15 2.0 Last Resulted CBC 04/12/16 10:11 Last Resulted BMP 04/12/16 10:11 Discharge Instructions ACTIVITY RECOMMENDATIONS: SELF CARE INSTRUCTIONS AFTER TOTAL KNEE REPLACEMENT A. You may need to continue a physical therapy program after discharge from the hospital. There are several options available to you. Your doctor will assist you in selecting the best one for you. 1. An out-patient facility 2 to 3 times a week for therapy or home therapy. 2. Continue working on all exercises taught to you in the hospital. Your goals should be to increase bending of your knee to 90 degrees and beyond and to fully straighten your knee. B. You may progress at your own pace from walking with a walker or crutches to a cane; then to no assistive devices. C. Make walking a part of your daily routine. Be up as much as comfortable with rest periods throughout the day. Rest with leg elevation is very important. Use the ice wrap frequently for the first 3-4 weeks. D. There are no restrictions on activities. You may ride in a car, shop, participate in manager oncology and all social activities. E. Wear the long elastic stockings (JUANA hose) 20 hours a day for 2 weeks after surgery. They can be removed several times a day for laundering and for a bath. F. You may shower, no tub baths until cleared by your doctor. SPECIAL CARE INSTRUCTIONS: VERY IMPORTANT TO READ AND REVIEW A. There are a few signs you need to watch for after you are home. Call [facility] if you notice any of the followin. Increased severe knee pain. Some pain is expected especially when you exercise. 2. Increased swelling in your leg or knee; pain or swelling of the calf muscle in either lower leg. 3. Any fluid drainage from the incision. 4. Shortness of breath or chest pain. B. Please call [facility] at if you have any concerns or questions about your operation or recovery. The doctor or his nurse will return your call promptly. C. You must take antibiotics before dental work, bladder, bowel or other surgery. Your doctor will provide you with a permanent care to carry describing this precaution. IMPORTANT: * REMEMBER TO TAKE ASPIRIN, 81 MG, TWICE DAILY FOR 4 WEEKS UNLESS OTHERWISE DIRECTED. THIS IS YOUR BLOOD THINNER. * HIGH RISK PATIENTS MAY BE PRESCRIBED A STRONGER BLOOD THINNER. THIS WILL BE PROVIDED AT DISCHARGE. * CALL IF INCREASED PAIN, REDNESS, DRAINAGE OR FEVER GREATER THAT 101. * WEAR JUANA HOSE 20 HOURS PER DAY FOR 2 WEEKS. * DERMABOND Prineo- This is a mesh tape dressing that is covered with glue. It should remain in place until the incision is properly healed, usually 10-14 days. This dressing is designed to naturally slough off. You may trim the excess mesh tape as it peels off. Incision may be briefly wet in a shower. Dry immediately by blotting with a clean, dry towel. Do not bath or swim until instructed by your doctor. Do not scratch, rub, or pick at the dressing. Do not apply any topical ointments or lotions until dressing is completely removed and/or instructed by your doctor. There may be a small piece of suture material at one end of your incision. Do not pull or trim this. If it is bothersome or catching on clothing, you may cover it with a band-aid. FOLLOW UP VISIT: If appointment is not already scheduled: Please call [facility] to make a follow-up appointment for 2 weeks after your surgery at .
[2016-04-13] MEDS: SUCRALFATE 1 GM/10 ML UDC PO SCH ×2 (07:30→11:53)
[2016-04-13 08:06] VITALS: BP 120/82; PULSE 81; TEMP 36.5; O2SAT 100
[2016-04-13] MEDS: FERROUS SULFATE 325 MG TAB PO SCH (08:55)
[2016-04-13] MEDS: OXYCODONE HCL 20 MG TABCR (OXYCONTIN) PO SCH (08:56)
[2016-04-13] MEDS: PANTOprazole SOD 40 MG TAB PO SCH (08:57)
[2016-04-13] MEDS: SERTRALINE HCL 100 MG TAB PO SCH (08:57)
[2016-04-13] MEDS: FERROUS GLUCONATE 324 MG TAB PO SCH (08:57)
[2016-04-13] MEDS: MULTIVITAMIN TAB PO SCH (08:57)
[2016-04-13] MEDS: DOCUSATE SODIUM 100 MG CAP PO SCH (09:00)
[2016-04-13] MEDS: ASPIRIN 81 MG ECTAB PO SCH (11:53)
== END 2016-04-13 12:42 | disposition home health service (06) | DRG 470 ==
LOC: ENRESERVDT → ENRESERVTM → C.ACU 09:13 → C.3E 09:45
PROVIDERS: ADMIT Orthopaedic Surgery; ATTEND Orthopaedic Surgery
PROC: 0SPD04Z Removal of Internal Fixation Device from Left Knee Joint, Open Approach (ICD-10-PCS; principal; 2016-04-11 11:45)
PROC: 0SRD0J9 Replacement of Left Knee Joint with Synthetic Substitute, Cemented, Open Approach (ICD-10-PCS; principal; 2016-04-11 11:45)
DX: M17.12 Unilateral primary osteoarthritis, left knee (principal); Z47.2 Encounter for removal of internal fixation device; K25.9 Gastric ulcer, unspecified as acute or chronic, without hemorrhage or perforation; K21.9 Gastro-esophageal reflux disease without esophagitis; F32.9 Major depressive disorder, single episode, unspecified; F17.200 Nicotine dependence, unspecified, uncomplicated; Z98.84 Bariatric surgery status; Z79.891 Long term (current) use of opiate analgesic; Z79.899 Other long term (current) drug therapy